=== PATIENT | male | born 1980 | race Two or more races ===

== ENCOUNTER 2020-04-14 14:06 | Outpatient (CLI) | payer OTHER | END 2020-04-14 14:22 | disposition home or self-care (01) | LOC: RAD 14:06 | PROVIDERS: ATTEND Orthopaedic Surgery | DX: M25.511 Pain in right shoulder (principal); M25.531 Pain in right wrist; M54.2 Cervicalgia; M25.571 Pain in right ankle and joints of right foot; M79.604 Pain in right leg ==